=== PATIENT | female | born 1945 | race Caucasian/White ===

== ENCOUNTER 2024-12-26 11:33 | Observation (INO) ==
--- NOTE | 2024-12-26 11:53 | Emergency Department Note ---
Impression & Plan Chest pain, Abdominal pain, Shortness of breath, Elevated troponin, Hypoxia ED Provider Note NAME: OBI JOHNS AGE: 79 SEX: F : 1945 ARRIVES VIA: Ambulance INFORMANT: Patient ED PROVIDER(S): Miguelito Wallace DO CHIEF COMPLAINT: Chest pain, shortness of breath and vomiting HPI: Patient is a 79-year-old female who presents to the ER for chest pain and shortness of breath associated with vomiting. She notes her symptoms started this morning with shortness of breath and chest pain. Shortly after this she started vomiting. She threw up several times. She notes after vomiting she started having pain in her stomach. Chest pain has abated now. She was brought in by EMS and was given will be fentanyl. Denies any headache or change in vision. No dysuria, urgency or frequency. No other exacerbating or remitting factors. She does have a history of hypertension and smoker. ADDITIONAL HISTORY OBTAINED: Per HPI Chronic Medical/Social Conditions Affecting Care: Per HPI PAST MEDICAL HISTORY:See Below PAST SURGICAL HISTORY:See Below FAMILY HISTORY:See Below SOCIAL HISTORY:See Below HOME MEDICATIONS:See Below ALLERGIES:See Below VITALS:See Below PHYSICAL EXAMINATION: GENERAL: Sitting up in bed, alert, anxious, disheveled and tearful EYE EXAM: normal conjunctiva. OROPHARYNX: Moist mucous membranes NECK: supple, no nuchal rigidity, no adenopathy, non-tender LUNGS: Clear to auscultation. Normal chest wall mechanics HEART: no murmurs, S1 normal and S2 normal ABDOMEN: abdomen soft, non-tender, normo-active bowel sounds, no masses, no rebound or guarding. UPPER EXTREMITIES: upper extremities are grossly normal. LOWER EXTREMITIES: No pitting edema. NEURO EXAM: Normal sensorium, cranial nerves II-XII grossly intact, normal speech, no gross weakness of arms, no gross weakness of legs. MEDICAL DECISION MAKING: Patient is a 79-year-old female who presents ER for the above-stated complaint. IV was established and blood work was obtained. Labs show mild leukocytosis of 11.9 thousand. Hemoglobin at 16. BMP with LFTs bilirubin was fairly reassuring. Troponin was elevated but were trending from 28 to 35. Lipase was normal. UA was contaminated. No white cells to suggest infection. CT abdomen pelvis and CT of the chest showed no acute pathology. Patient was updated bedside. She was given aspirin, fluids and Zofran. She was feeling better. Upon arrival she had no chest pain. She was slightly hypoxic and placed on nasal cannula. Question if this was secondary to the prehospital fentanyl especially in light of a negative CTA but unclear at this point. Patient was discussed with the hospitalist and she was admitted for further workup. Consults/Care Managements Discussions: Per MDM Triage Nursing notes reviewed. Limited review of prior medical records performed Vital Signs: reviewed and remarkable for HTN Differential diagnosis: Cardiac ischemia, aortic dissection, pulmonary embolism, pneumothorax, pneumonia, pericarditis, myocarditis, esophageal rupture, GERD, cholecystitis, pancreatitis, musculoskeletal, as well as other pathologies. ER treatment provided: See below Diagnostics interpreted by me include EKG and cardiac monitoring as listed below: -Cardiac Monitoring: An order was placed for continuous cardiac monitoring. The monitor shows a rate of 60 with sinus rhythm. -ECG: Sinus bradycardia rate of 59 Normal axis No PVCs QTc 479 -Laboratory studies:Interpreted by me as stated above in MDM and shown below. Imaging studies: Xrays: As interpreted by me: Portable AP upright 1 view of the chest shows no focal infiltrate CTs show: CT angio as well as abdomen pelvis showed pulmonary nodules Procedures:none Critical Care: I have personally spent 32 minutes of critical care time in the direct management of this patient. This includes bedside care, interpretation of diagnostic studies, and testing, discussion with consultants, patient, and family members, and other required patient management activities. This 32 minutes is in excess of all separately billable procedures. Past Med/Surg History Problem List (Updated 12/26/24 @ 16:06 by Miguelito Wallace DO) Hypoxia (Acute) Elevated troponin (Acute) Shortness of breath (Acute) Abdominal pain (Acute) Chest pain (Acute) Social History Smoking Status: Current every day smoker Tobacco Type: Cigarettes Preferred Language: Yoruba Feels Safe at Home: Yes Allergies Allergies Allergy/AdvReac Type Severity Reaction Status Date / Time No Known Allergies Allergy Unverified 12/26/24 15:01 Home Meds Home Medications Medication Instructions Recorded Confirmed calcium carbonate 500 mg PO DAILY 12/26/24 12/26/24 cholecalciferol (vitamin D3) 25 25 mcg PO DAILY 12/26/24 12/26/24 mcg (1,000 unit) tablet (Vitamin D3) Results & Data (ED) Vital Signs Vital Signs - 24 hr 12/26/24 11:43 12/26/24 12:12 12/26/24 12:16 Temperature 36.4 C L Temperature Source Oral Pulse Rate 59 L 54 L Pulse Rate [Finger] Respiratory Rate 18 Blood Pressure 141/75 H Blood Pressure [Right Arm] Blood Pressure Mean 97 Blood Pressure Mean [Right Arm] Pulse Oximetry 98 88 L Oxygen Delivery Method Room Air Room Air Nasal Cannula Oxygen Flow Rate 0 Sepsis Recent Fever Within 48 Hours No Sepsis New/Unexplained Change in Mental Status No Sepsis Action Taken by Nursing No Action Required Oxygen Flow Rate - Titration 2 Pulse Oximetry Post Tiitration 96 12/26/24 13:44 12/26/24 15:30 Temperature Temperature Source Pulse Rate Pulse Rate [Finger] 69 62 Respiratory Rate 16 18 Blood Pressure Blood Pressure [Right Arm] 165/76 H 156/78 H Blood Pressure Mean Blood Pressure Mean [Right Arm] 105 104 Pulse Oximetry 94 95 Oxygen Delivery Method Nasal Cannula Nasal Cannula Oxygen Flow Rate 2 2 Sepsis Recent Fever Within 48 Hours Sepsis New/Unexplained Change in Mental Status Sepsis Action Taken by Nursing Oxygen Flow Rate - Titration Pulse Oximetry Post Tiitration Laboratory Data 12/26/24 11:13 12/26/24 11:13 Lab Results 12/26/24 12/26/24 12/26/24 Range/Units 11:13 13:55 14:17 WBC 11.96 H (4.8-10.8) K/ul RBC 5.51 H (4.20-5.40) M/uL Hgb 16.2 H (12.0-16.0) g/dl Hct 46.9 (37.0-47.0) % MCV 85.1 (80.0-100.0) fL MCH 29.4 (25.0-34.0) pg MCHC 34.5 (32.0-36.0) g/dL RDW Std Deviation 44.5 (36.4-46.3) fL RDW Coeff of Elizabeth 14.4 (11.5-14.5) % Plt Count 249 (130-400) K/uL MPV 11.8 (9.4-12.4) fL Immature Gran % (Auto) 0.2 % Neut % (Auto) 88.3 % Lymph % (Auto) 7.7 % Park % (Auto) 3.8 % Eos % (Auto) 0.0 % Baso % (Auto) 0.0 % Neut # (Auto) 10.56 H (1.40-6.50) K/uL Lymph # (Auto) 0.92 L (1.20-3.40) K/uL Park # (Auto) 0.46 (0.11-0.59) K/uL Eos # (Auto) 0.00 (0.00-0.50) K/uL Baso # (Auto) 0.00 (0.00-0.20) K/uL Immature Gran # (Auto) 0.02 (0.01-0.20) K/uL Sodium 143 (136-145) mmol/L Potassium 3.6 (3.5-5.1) mmol/L Chloride 103 (98-107) mmol/L Carbon Dioxide 27 (21-32) mmol/L Anion Gap 13 H (3-11) BUN 17 (6-23) mg/dl Creatinine 1.00 (0.6-1.2) mg/dl Est Cr Clr Drug Dosing 41.7 ml/min eGFR 57.66 BUN/Creatinine Ratio 17.0 (10-20) Glucose 161 H (70-99(Fasting)) mg/dl Calcium 10.2 (8.6-10.3) mg/dl Total Bilirubin 0.7 (0.2-1.0) mg/dl AST 18 (13-39) U/L ALT 13 (7-52) U/L Alkaline Phosphatase 82 (34-104) U/L Troponin I High Sens 21.0 H 35.1 H D (0-14) pg/ml Total Protein 8.1 (6.0-8.3) gm/dl Albumin 4.5 (3.4-5.0) gm/dl Globulin 3.6 (2.5-4.0) gm/dl Albumin/Globulin Ratio 1.3 (0.9-2) Lipase 14 (11-82) U/L Urine Color Yellow Urine Appearance Clear (Clear) Urine pH 8.5 H (4.5-7.5) Ur Specific [place] > 1.045 H (1.000-1.030) Urine Protein 1+ H (Negative) Urine Glucose (UA) Negative (Negative) Urine Ketones Trace H (Negative) Urine Blood 1+ H (Negative) Urine Nitrite Negative (Negative) Urine Bilirubin Negative (Negative) Urine Urobilinogen Negative (Negative) Ur Leukocyte Esterase 1+ H (Negative) Urine WBC (Auto) 0-5 (0-5) /hpf Urine RBC (Auto) 11-20 H (0-2) /hpf U Hyaline Cast (Auto) 0-2 (0-2) /lpf U Epithel Cells (Auto) 6-10 H (0-2) /hpf Urine Bacteria (Auto) 2+ H (None Seen) Urine Comment Administered Medications Discontinued Medications Aspirin (Aspirin Chew 324 Mg) 324 mg PO NOW STA Stop: 12/26/24 14:20 Last Admin: 12/26/24 14:21 Dose: 324 mg Documented By: KAMILLE Sodium Chloride (Nss) 500 mls @ 999 mls/hr IV .Q31M ONE Stop: 12/26/24 12:19 Last Infusion: 12/26/24 12:32 Dose: Infused Documented By: Admin: 12/26/24 11:58 Dose: 999 mls/hr Documented By: KAMILLE Ioversol (Optiray 320 125ml) 118 ml IV ONCE ONE Stop: 12/26/24 13:35 Last Admin: 12/26/24 13:34 Dose: 118 ml Documented By: KARLA Ondansetron HCl (Ondansetron Inj 2 Mg/Ml 2 Ml Vial) 4 mg IV NOW STA Stop: 12/26/24 11:49 Last Admin: 12/26/24 11:58 Dose: 4 mg Documented By: KAMILLE Imaging Data Radiologist's Impression: Abdomen/Pelvis CT 12/26/24 11:48 CT SCAN OF THE ABDOMEN AND PELVIS WITH IV CONTRAST CLINICAL HISTORY: Epigastric abdominal pain COMPARISON STUDY: No priors TECHNIQUE: Following the IV administration of 118 cc of Optiray 320, CT scan of the abdomen and pelvis is performed from the lung bases to the proximal femora. Images are reviewed in the axial, sagittal, and coronal planes. IV contrast was administered without complication. A dose lowering technique was utilized adhering to the principles of ALARA. FINDINGS: Lung bases: The heart is top normal in size and without pericardial effusion. Emphysematous change is suspected. There is bibasilar scarring/atelectasis. No airspace consolidation or pleural effusion is identified. Liver: The contrast-enhanced liver is normal in size, contour, and attenuation. Fatty infiltration is seen adjacent to the falciform ligament. There is no intrahepatic biliary ductal dilatation. The hepatic veins and portal veins are patent. Gallbladder: Unremarkable. Spleen: Normal in size and attenuation. Pancreas: Unremarkable. Adrenal glands: Unremarkable. Kidneys: The contrast enhanced kidneys are normal in size and without hydronephrosis. The kidneys enhance symmetrically. Abdominal vasculature: There is moderate to advanced atherosclerotic calcification and mild ectasia of the abdominal aorta. Bowel: There is moderate sigmoid diverticulosis without CT evidence of acute diverticulitis. No bowel obstruction is seen. The appendix is not visualized. Peritoneum: There is no intraperitoneal free air or abdominal ascites. Lymphadenopathy: None. Pelvic viscera: The bladder, uterus, and adnexa are normal as visualized. Skeletal structures: The skeletal structures are osteopenic. There is mild lumbosacral spondylosis. No lytic or blastic lesions are seen. IMPRESSION: 1. No acute infectious or inflammatory findings are identified in the abdomen or pelvis. 2. Sigmoid diverticulosis without CT evidence of acute diverticulitis. 3. Additional findings as above. ACT 112: Negative or not required by law. Electronically signed by: Ravi Santo M.D. 12/26/2024 1:51 PM Chest X-Ray 12/26/24 11:48 SINGLE VIEW CHEST CLINICAL HISTORY: Chest pain FINDINGS: An AP, portable, upright chest radiograph is obtained. No prior studies are available for comparison at the time of dictation. The examination is degraded by portable technique and apical lordotic positioning. The cardiomediastinal silhouette is unremarkable noting atherosclerotic calcification of the thoracic aorta. Emphysema is suspected. Nonspecific interstitial thickening is likely chronic. There is bibasilar scarring/atelectasis. No airspace consolidation or large pleural effusion is identified. Question a nodular opacity in the right upper lung. No pneumothorax is seen. The skeletal structures are osteopenic. The bony thorax is grossly intact. IMPRESSION: 1. No acute cardiopulmonary abnormality is identified. 2. Suspect emphysema. 3. Question a nodular opacity in the right upper lung. This may be artifactual. A nonemergent chest CT is recommended in follow-up to exclude the possibility of underlying pulmonary nodule. ACT 112: Positive. There are findings on this exam that require communication between the performing entity and the patient following Patient Test Result Information Act ([place] Act 112) guidelines. Electronically signed by: Ravi Santo M.D. 12/26/2024 12:03 PM Chest CTA 12/26/24 12:41 CT angio chest PE protocol CT DOSE: 1078.4 mGy.cm HISTORY: 79 years-old Female with PE hypoxic and cp. Acute shortness of breath with chest pain TECHNIQUE: Multiple CTA images of the chest were obtained after the intravenous administration of 118 ml Optiray. Coronal and sagittal MIPS were obtained from the axial data set and were submitted for review. All measurements were obtained according to NASCET criteria. A dose lowering technique was utilized adhering to the principles of ALARA. COMPARISON: CT abdomen and pelvis of same day FINDINGS: CTA: Heart is normal in size. Suboptimal evaluation of the left heart structures secondary to contrast bolus timing. No thoracic aortic aneurysm. Mild coronary artery calcifications. No pulmonary emboli are seen. CT CHEST: No dominant thyroid nodule is seen. No pathologically enlarged lymph nodes. No pneumothorax, pleural effusion or overt pulmonary edema. Mild to moderate pulmonary emphysema. Mild subsegmental bibasilar densities suggest atelectasis/scarring. There are no suspicious pulmonary nodules or masses identified. There are 2 ill-defined groundglass nodular foci within the right lung apex measuring up to 8 mm. The central airways are patent. No acute upper abdominal abnormality. The soft tissues are within normal limits. No acute fracture. IMPRESSION: 1. Unremarkable CTA of the chest. No pulmonary emboli identified. 2. Mild right basilar predominant atelectasis/scarring. 3. Pulmonary emphysema. 4. There are two groundglass nodular foci within the right lung apex measuring up to 8 mm. Follow-up guidelines below. Please refer to below summary of Fleischner criteria recommendations for follow- up of incidental CT nodules (Choco Delaney, Guidelines for management of small pulmonary nodules detected on CT scans: A statement from the Fleischner Society, Radiology 237: [id number].) Note: newly detected indeterminate nodule in persons 35 years of age or older. * Low risk patients: minimal or absent history of smoking and/or other known risk factors * high risk patients: history of smoking or of other known risk factors (e.g. first degree relative with lung cancer, or exposure to asbestos, radon, uranium) * if a nodule up to 8 mm is partly solid or is ground glass further follow-up is required after 24 months to exclude possible slow growing adenocarcinoma (ROD) SUBSOLID NODULES Multiple subsolid nodules * nodule size <6 mm - follow-up CT at 3-6 months, consider further follow-up at 2 and 4 years if stable * nodule size >=6 mm - follow-up CT at 3-6 months, subsequent management based on the most suspicious nodule(s) The above report was generated using voice recognition software. It may contain grammatical, syntax or spelling errors. ACT 112: Negative or not required by law. The above report was generated using voice recognition software. It may contain grammatical, syntax or spelling errors. Electronically signed by: Mono Pinzon M.D. 12/26/2024 2:14 PM Discharge Plan Visit Data Chief Complaint: Chest Pain ED Provider: Miguelito Wallace Discharge Problem: Chest pain, Abdominal pain, Shortness of breath, Elevated troponin, Hypoxia Condition: Fair Forms Stand Alone Forms: [employer] [facility] [employer] Prescriptions Prescriptions: No Action calcium carbonate [Calcium 500] 500 mg calcium (1,250 mg) Tablet 500 mg PO DAILY cholecalciferol (vitamin D3) [Vitamin D3] 25 mcg (1,000 unit) Tablet 25 mcg PO DAILY Referrals Referrals: PCP,NO [Primary Care Provider] - Discharge Problem: Chest pain Qualifiers: Chest pain type: unspecified Qualified Code(s): R07.9 - Chest pain, unspecified Abdominal pain Qualifiers: Abdominal location: unspecified location Qualified Code(s): R10.9 - Unspecified abdominal pain
[2024-12-26] MEDS: ONDANSETRON INJ 2 MG/ML 2 ML VIAL IV STA (11:58)
[2024-12-26] MEDS: SODIUM CHLORIDE 0.9% 500 ML IV ONE (11:58)
--- NOTE | 2024-12-26 12:04 | XRay Report ---
SINGLE VIEW CHEST CLINICAL HISTORY: Chest pain FINDINGS: An AP, portable, upright chest radiograph is obtained. No prior studies are available for c omparison at the time of dictation. The examination is degraded by portable technique and apical lord otic positioning. The cardiomediastinal silhouette is unremarkable noting atherosclerotic calcificat ion of the thoracic aorta. Emphysema is suspected. 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 There is bibasilar scarring/atelectasis. No airspace consolidation or large pleural effusion is identified. Question a nodular opacity in the right upper lung. No pneumothorax is seen. The skeletal structures are osteopenic. The bony thorax is grossly intact. IMPRESSION: 1. No acute cardiopulmonary abnormality is identified. 2. Suspect emphysema. 3. Question a nodular opacity in the right upper lung. This may be artifactual. A nonemergent chest C T is recommended in follow-up to exclude the possibility of underlying pulmonary nodule. ACT 112: Positive. There are findings on this exam that require communication between the performing entity and the patient following Patient Test Result Information Act ([place] Act 112) guidelines. Electronically signed by: Ravi Santo M.D. 12/26/2024 12:03 PM
[2024-12-26 12:06] LABS: Hematocrit (blood only) 46.9 % (37.0-47.0); Hemoglobin 16.2 g/dl (12.0-16.0); Immature Granulocytes # (auto) 0.02 K/uL (0.01-0.20); Immature Granulocytes % (auto) 0.2 %; Mean Corpuscular Hemoglobin 29.4 pg (25.0-34.0); Mean Corpuscular Volume 85.1 fL (80.0-100.0); Platelet Count 249 K/uL (130-400); RDW Standard Deviation 44.5 fL (36.4-46.3); Red Blood Count 5.51 M/uL (4.20-5.40); White Blood Count 11.96 K/ul (4.8-10.8)
[2024-12-26 12:55] LABS: Alanine Aminotransferase 13.0 U/L (7-52); Albumin Globulin Ratio 1.3 (0.9-2); Alkaline Phosphatase 82.0 U/L (34-104); Anion Gap 13.0 (3-11); Bilirubin,Total 0.7 mg/dl (0.2-1.0); Blood Urea Nitrogen 17.0 mg/dl (6-23); Calcium 10.2 mg/dl (8.6-10.3); Carbon Dioxide 27.0 mmol/L (21-32); Chloride 103.0 mmol/L (98-107); Creatinine Clr Calc Pharmacy 41.7 ml/min; Globulin 3.6 gm/dl (2.5-4.0); Glucose 161.0 mg/dl (70-99(Fasting)); Lipase 14.0 U/L (11-82); Potassium 3.6 mmol/L (3.5-5.1); Sodium 143.0 mmol/L (136-145); Total Protein 8.1 gm/dl (6.0-8.3)
[2024-12-26] MEDS: OPTIRAY 320 125ml IV ONE (13:34)
--- NOTE | 2024-12-26 13:53 | CT Scan Report ---
CT SCAN OF THE ABDOMEN AND PELVIS WITH IV CONTRAST CLINICAL HISTORY: Epigastric abdominal pain COMPARISON STUDY: No priors TECHNIQUE: Following the IV administration of 118 cc of Optiray 320, CT scan of the abdomen and pelv is is performed from the lung bases to the proximal femora. Images are reviewed in the axial, sagitta l, and coronal planes. IV contrast was administered without complication. A dose lowering technique w as utilized adhering to the principles of ALARA. FINDINGS: Lung bases: The heart is top normal in size and without pericardial effusion. Emphysematous change is suspected. There is bibasilar scarring/atelectasis. No airspace consolidation or pleural effusion is identified. Liver: The contrast-enhanced liver is normal in size, contour, and attenuation. Fatty infiltration is seen adjacent to the falciform ligament. There is no intrahepatic biliary ductal dilatation. The hep atic veins and portal veins are patent. Gallbladder: Unremarkable. Spleen: Normal in size and attenuation. Pancreas: Unremarkable. Adrenal glands: Unremarkable. Kidneys: The contrast enhanced kidneys are normal in size and without hydronephrosis. The kidneys enh ance symmetrically. Abdominal vasculature: There is moderate to advanced atherosclerotic calcification and mild ectasia o f the abdominal aorta. Bowel: There is moderate sigmoid diverticulosis without CT evidence of acute diverticulitis. No bowel obstruction is seen. The appendix is not visualized. Peritoneum: There is no intraperitoneal free air or abdominal ascites. Lymphadenopathy: None. Pelvic viscera: The bladder, uterus, and adnexa are normal as visualized. Skeletal structures: The skeletal structures are osteopenic. There is mild lumbosacral spondylosis. N o lytic or blastic lesions are seen. IMPRESSION: 1. No acute infectious or inflammatory findings are identified in the abdomen or pelvis. 2. Sigmoid diverticulosis without CT evidence of acute diverticulitis. 3. Additional findings as above. ACT 112: Negative or not required by law. Electronically signed by: Ravi Santo M.D. 12/26/2024 1:51 PM
[2024-12-26 14:16] LABS: Appearance Urine Clear (Clear); Bacteria Urine Automated 2+ (None Seen); Cast Urine Automated 0-2 /lpf (0-2); Glucose Urine UA Negative (Negative); WBC Urine Automated 0-5 /hpf (0-5)
--- NOTE | 2024-12-26 14:16 | CT Scan Report ---
CT angio chest PE protocol CT DOSE: 1078.4 mGy.cm HISTORY: 79 years-old Female with PE hypoxic and cp. Acute shortness of breath with chest pain TECHNIQUE: Multiple CTA images of the chest were obtained after the intravenous administration of 118 ml Optiray. Coronal and sagittal MIPS were obtained from the axial data set and were submitted for review. All measurements were obtained according to NASCET criteria. A dose lowering technique was u tilized adhering to the principles of ALARA. COMPARISON: CT abdomen and pelvis of same day FINDINGS: CTA: Heart is normal in size. Suboptimal evaluation of the left heart structures secondary to contrast cheryl us timing. No thoracic aortic aneurysm. Mild coronary artery calcifications. No pulmonary emboli are seen. CT CHEST: No dominant thyroid nodule is seen. No pathologically enlarged lymph nodes. No pneumothorax, pleural effusion or overt pulmonary edema. Mild to moderate pulmonary emphysema. Mild subsegmental bibasilar densities suggest atelectasis/scarring. There are no suspicious pulmonary nodules or masses identifie d. There are 2 ill-defined groundglass nodular foci within the right lung apex measuring up to 8 mm. The central airways are patent. No acute upper abdominal abnormality. The soft tissues are within nor mal limits. No acute fracture. IMPRESSION: 1. Unremarkable CTA of the chest. No pulmonary emboli identified. 2. Mild right basilar predominant atelectasis/scarring. 3. Pulmonary emphysema. 4. There are two groundglass nodular foci within the right lung apex measuring up to 8 mm. Follow-up guidelines below. Please refer to below summary of Fleischner criteria recommendations for follow-up of incidental CT n odules (Choco Delaney, Guidelines for management of small pulmonary nodules detected on CT scans: A sta tement from the Fleischner Society, Radiology 237: [phone].) Note: newly detected indeterminate nodule in persons 35 years of age or older. * Low risk patients: minimal or absent history of smoking and/or other known risk factors * high risk patients: history of smoking or of other known risk factors (e.g. first degree relative with lung cancer, or exposure to asbestos, radon, uranium) * if a nodule up to 8 mm is partly solid or is ground glass further follow-up is required after 24 m onths to exclude possible slow growing adenocarcinoma (ROD) SUBSOLID NODULES Multiple subsolid nodules * nodule size <6 mm - follow-up CT at 3-6 months, consider further follow-up at 2 and 4 years if sta ble * nodule size >=6 mm - follow-up CT at 3-6 months, subsequent management based on the most suspiciou s nodule(s) The above report was generated using voice recognition software. It may contain grammatical, syntax o r spelling errors. ACT 112: Negative or not required by law. The above report was generated using voice recognition software. It may contain grammatical, syntax o r spelling errors. Electronically signed by: Mono Pinzon M.D. 12/26/2024 2:14 PM
[2024-12-26] MEDS: ASPIRIN CHEW 324 MG PO STA (14:21)
[2024-12-26 16:00] LABS: INR 1.0 (0.9-1.1); Partial Thromboplastin Time 27 Seconds (21-31); Prothrombin Time 10.4 Seconds (9.0-12.0)
[2024-12-26] MEDS: PANTOprazole 40 MG/10 ML SYR IV ONE (16:13)
--- NOTE | 2024-12-26 16:16 | Electrocardiogram Report ---
Test Reason : Blood Pressure : */* mmHG Vent. Rate : 59 BPM Atrial Rate : 59 BPM P-R Int : 168 ms QRS Dur : 80 ms QT Int : 484 ms P-R-T Axes : 83 44 73 degrees QTcB Int : 479 ms Sinus bradycardia with sinus arrhythmia Otherwise normal ECG No previous ECGs available Confirmed by Gregory Woodard ([id number]) on 12/26/2024 4:16:38 PM Referred By: Confirmed By: Gregory Woodard
[2024-12-26] MEDS: SUCRALFATE 1 GM/10 ML UDC PO SCH (17:51)
--- NOTE | 2024-12-26 22:23 | History & Physical Report ---
Date of Service December 26, 2024 Assessment & Plan (1) Abdominal pain: Plan: acute chest pain and abdominal pain in a 79 yo female with no significant past medical history. Doubt ACS, troponin only mildly elevated. Ruled out P/E and dissection with CTA of chest and abd/pevis. WBC only mildly elevbated. No recent use of NSAIDs Concern for Gastroenteritis vs peptic ulcer disease. will place on pantoprazole sucralfate. Will also consider GI consult. will trend tropoinin, will place on tele. Possible discharge in AM if symptoms resolved vs endoscopy if symptoms worsen. Admission and Anticipated Discharge Date Admission Date: December 26, 2024 History of Present Illness Chief Complaint: abdominal pain Primary Care Provider: NO PCP 79 yo female woke up at 4 am with need to defecate. She went to the bathroom and had a liquid BM, which is not her norm. She noted there was no blood. Patient went back to bed but was unable to fall back to sleep. She stated that her pain returned and radiated to her back. She reports the raidation begins in her mid lumbar spine but then goes up to her chest and mid thoracic spine. = This was accompanied by need to go to defecate, however she only passed gas. She then had chills, followed by nausea and miultiple episodes of vomiting. No recent use of NSAIDs. Patient has not followed with a PCP in past 2 years. Allergies Allergy/AdvReac Type Severity Reaction Status Date / Time No Known Allergies Allergy Unverified 12/26/24 15:01 Home Medications Medication Instructions Recorded Confirmed Type calcium carbonate 500 mg PO DAILY 12/26/24 12/26/24 History cholecalciferol (vitamin D3) 25 25 mcg PO DAILY 12/26/24 12/26/24 History mcg (1,000 unit) tablet (Vitamin D3) Past Med/Surg History Problem List Hypoxia (Acute) Elevated troponin (Acute) Shortness of breath (Acute) Abdominal pain (Acute) Chest pain (Acute) Social History Smoking Status: Never smoker Tobacco Type: Cigarettes Second Hand Exposure: No; Do You Dip or Chew Tobacco: No; Tobacco Cessation Education Requested by Patient: No Hx Alcohol Use: No Hx Substance Use: No Preferred Language: Cameroonian Communication Ability: Effective Beliefs That Will Affect Care: Buddhism Buddhism Beliefs: Shinto Current Living Situation: Alone Current Living Situation Comment: With cat- Other Information That Helps Us Care for You: No Feels Safe at Home: Yes Safety Concerns: Feels Safe At This Time Assistive Devices: None Review of Systems Constitutional: + chills; no fever and no body aches Eyes: no blind spots Ear, Nose, Mouth, Throat: no ear pain Respiratory: no cough and no dyspnea Cardiovascular: + chest pain Gastrointestinal: + abdominal pain Genitourinary: no dysuria and no urinary hesitancy Musculoskeletal: + back pain Integumentary: no lesions Neurologic: no gait abnormality and no localized weakness Psychiatric: no behavioral changes and no anhedonia Endocrine: no fatigue Hematologic / Lymphatic: no easy bleeding Allergy / Immunological: no GI upset with certain foods Physical Exam Constitutional: WD/WN, vitals as above Eyes: PERRL, conjunctivae normal, anicteric sclerae ENMT: external ear and nose normal, oropharynx normal Neck: trachea midline, no thyromegaly Respiratory: normal respiratory effort, lungs clear to auscultation Cardiovascular: RRR, no murmur, no edema Gastrointestinal (Abdomen): Inspection/Auscultation: abdomen normal to inspection and normal bowel sounds Percussion/Palpation: abdomen soft; abdomen nontender Musculoskeletal: no cyanosis or clubbing, extremities motor strength 5/5 Skin: no rashes, warm and dry Neurologic: PERRL, EOMI, accommodation nl, no face palsy, no dysarthria Psychiatric: A+Ox3, euthymic affect Lymphatic: no cervical or axillary lymphadenopathy Results & Data Results & Data Vital Signs (Past 12 Hours) Vital Signs Temp Pulse Pulse Resp BP BP Pulse Ox 12/26/24 20:26 36.9 C 70 18 154/85 H 95 12/26/24 16:54 65 12/26/24 15:30 62 18 156/78 H 95 12/26/24 13:44 69 16 165/76 H 94 12/26/24 12:16 54 L 12/26/24 12:12 88 L 12/26/24 11:43 36.4 C L 59 L 18 141/75 H 98 O2 Del Method O2 Flow Rate 12/26/24 20:26 Room Air 12/26/24 16:54 12/26/24 15:30 Nasal Cannula 2 12/26/24 13:44 Nasal Cannula 2 12/26/24 12:16 12/26/24 12:12 Room Air, Nasal Cannula 0 12/26/24 11:43 Room Air PG Care Time/CCT Total # of Minutes Spent Total Time Spent with Patient: Total time spent is greater than 50% in coordination of care (as documented) at patient's floor/unit and/or counseling patient: Coding Level of Care Code 25491 INT INP/OBS CARE 3/75MIN Diagnoses Abdominal pain R10.9 Abdominal location: unspecified location (1) Abdominal pain Abdominal location: unspecified location Qualified Code(s): R10.9 - Unspecified abdominal pain
[2024-12-27] MEDS ORDERED: ACETAMINOPHEN 325 MG TAB PO PRN (03:28)
[2024-12-27] MEDS: ACETAMINOPHEN 500 MG TAB PO PRN (03:56)
[2024-12-27 05:49] LABS: Hematocrit (blood only) 43.0 % (37.0-47.0); Hemoglobin 14.2 g/dl (12.0-16.0); Immature Granulocytes # (auto) 0.03 K/uL (0.01-0.20); Immature Granulocytes % (auto) 0.3 %; Mean Corpuscular Hemoglobin 28.3 pg (25.0-34.0); Mean Corpuscular Volume 85.8 fL (80.0-100.0); Platelet Count 223 K/uL (130-400); RDW Standard Deviation 46.8 fL (36.4-46.3); Red Blood Count 5.01 M/uL (4.20-5.40); White Blood Count 10.72 K/ul (4.8-10.8)
[2024-12-27 06:05] LABS: Alanine Aminotransferase 11.0 U/L (7-52); Alkaline Phosphatase 68.0 U/L (34-104); Blood Urea Nitrogen 13.0 mg/dl (6-23); Calcium 9.3 mg/dl (8.6-10.3); Carbon Dioxide 28.0 mmol/L (21-32); Chloride 104.0 mmol/L (98-107); Cholesterol 171.0 mg/dl (0-200); Creatinine Clr Calc Pharmacy 39.8 ml/min; Glucose 114.0 mg/dl (70-99(Fasting)); HDL Cholesterol 58.0 mg/dl; Lipase 14.0 U/L (11-82); Potassium 3.3 mmol/L (3.5-5.1)
[2024-12-27 06:14] LABS: Albumin Globulin Ratio 1.3 (0.9-2); Anion Gap 8.0 (3-11); Bilirubin,Total 0.8 mg/dl (0.2-1.0); Globulin 3.0 gm/dl (2.5-4.0); Sodium 140.0 mmol/L (136-145); Total Protein 6.9 gm/dl (6.0-8.3); Triglycerides 115.0 mg/dl (0-150)
[2024-12-27] MEDS: PANTOprazole 40 MG/10 ML SYR IV SCH (07:39)
[2024-12-27] MEDS: ASPIRIN 81 MG ECTAB PO SCH (07:39)
[2024-12-27] MEDS: ONDANSETRON INJ 2 MG/ML 2 ML VIAL IV STA (08:49)
--- NOTE | 2024-12-27 09:18 | Gastrointestinal Consultation ---
Date of Consultation December 27, 2024 Assessment & Plan (1) Abdominal pain: 79 year old female with history of HTN, osteoporosis and others below admitted through the ED w/ abdominal pain, nausea/vomiting Negative CTAP, negative chest CTA, lipase and LFTs non-elevated. She does note a history of solid's dysphagia but denies any impactions or sensation of foreign body sensation of esophagus at present time. Will plan for diagnostic EGD tomorrow to rule out esophagitis, gastritis, peptic ulcer disease vs other Clear liquids today NPO after midnight EGD 12/28/24 IV PPI BID May continue liquid Carafate Scheduled anti-emetics If she develops diarrhea, recommend stool PCR to rule out infectious etiology I spent a total of 60 minutes on the date of service in review of patient's record, and previously obtained information in person and appropriate medical visit, discussion and education of plan, with patient and/or caregiver, placing orders for tests/referral/procedures as medically necessary and documentation of pertinent clinical information in patient's medical records for their visit to day. Supervising Physician Co-Signing Physician Notes I saw and examined this patient with our nurse practitioner and agree with her assessment and plan. Patient with new onset epigastric substernal pain. Cardiopulmonary etiologies have been excluded. Abdominal imaging is unrevealing. To consider upper GI pathology such as pill induced esophagitis, infectious esophagitis possibly peptic ulcer disease. Will proceed with endoscopy in AM. History of Present Illness Reason for Consultation: epigastric abd. pain radiating to back Requesting Physician: Arash Brandon Attending Physician: Arash Brandon History of Present Illness 79 year old female with history of HTN, osteoporosis and others below admitted through the ED w/ abdominal pain, nausea/vomiting - GI was asked to evaluate. She notes her symptoms started about 36 hours ago. Developed severe abd discomfort - located in the epigastric region. She noted fullness through her entire abdomen explained as pressure. She later developed dry heaving followed by episodes of emesis. Per patient this was clear. Does not report seeing any black/bloody emesis. She notes she has had chronic intermittent solids dysphagia for about two years. No issue with liquids. No report of GERD. Denies change in bowel habits. No report of diarrhea/constipation. She cannot recall how may days ago her last BM was. Denies weight loss. No fever, chills, CP, SOB. NSAIDs: none ETOH: none Tobacco: none H&H 14.2/43 INR 1 TB 0.8 AST 19 ALT 11 ALKP 68 Lipase 14 Troponin 21 --> 35 --> 34 --> 28 Chest CTA 2024: Unremarkable CTA of the chest. No pulmonary emboli identified. Mild right basilar predominant atelectasis/scarring. Pulmonary emphysema.There are two groundglass nodular foci within the right lung apex measuring up to 8 mm. Follow-up guidelines below. Chest XR 2024: No acute cardiopulmonary abnormality is identified. Suspect emphysema. CTAP 2024: No acute infectious or inflammatory findings are identified in the abdomen or pelvis. Sigmoid diverticulosis without CT evidence of acute div erticulitis. EGD: none Colonoscopy: none Family history of GI malignancy: denies Allergies Allergy/AdvReac Type Severity Reaction Status Date / Time No Known Allergies Allergy Unverified 12/26/24 15:01 Home Medications Medication Instructions Recorded Confirmed Type calcium carbonate 500 mg PO DAILY 12/26/24 12/26/24 History cholecalciferol (vitamin D3) 25 25 mcg PO DAILY 12/26/24 12/26/24 History mcg (1,000 unit) tablet (Vitamin D3) Patient History Social History Smoking Status: Never smoker Tobacco Type: Cigarettes Second Hand Exposure: No; Do You Dip or Chew Tobacco: No; Tobacco Cessation Education Requested by Patient: No Hx Alcohol Use: No Hx Substance Use: No Preferred Language: Cape Verdean Communication Ability: Effective Beliefs That Will Affect Care: Religion Religion Beliefs: Pentecostal Current Living Situation: Alone Current Living Situation Comment: With cat- Other Information That Helps Us Care for You: No Feels Safe at Home: Yes Safety Concerns: Feels Safe At This Time Assistive Devices: None Review of Systems Review of Systems: All other findings negative except as noted in HPI. Physical Exam Constitutional: WD/WN, vitals as above Respiratory: normal respiratory effort Cardiovascular: Rate/Rhythm: regular rate and regular rhythm Gastrointestinal (Abdomen): Inspection/Auscultation: abdomen normal to inspection Skin: no rashes, warm and dry Results & Data Vital Signs (Past 12 Hours) Vital Signs Temp Pulse Pulse Resp BP Pulse Ox O2 Del Method 12/27/24 08:09 97.7 F 54 L 20 225/89 H 97 Room Air 12/27/24 03:05 97.9 F 88 20 186/78 H 94 Room Air 12/26/24 22:44 98.8 F 83 18 130/84 94 Room Air 12/26/24 21:49 61 Laboratory Results 12/27/24 12/26/24 12/26/24 Range/Units 05:34 23:18 14:17 WBC 10.72 (4.8-10.8) K/ul RBC 5.01 (4.20-5.40) M/uL Hgb 14.2 (12.0-16.0) g/dl Hct 43.0 (37.0-47.0) % MCV 85.8 (80.0-100.0) fL MCH 28.3 (25.0-34.0) pg MCHC 33.0 (32.0-36.0) g/dL RDW Std Deviation 46.8 H (36.4-46.3) fL RDW Coeff of [place] 14.9 H (11.5-14.5) % Plt Count 223 (130-400) K/uL MPV 11.4 (9.4-12.4) fL Immature Gran % (Auto) 0.3 % Neut % (Auto) 63.3 % Lymph % (Auto) 23.5 % [place] % (Auto) 12.1 % Eos % (Auto) 0.5 % Baso % (Auto) 0.3 % Neut # (Auto) 6.79 H (1.40-6.50) K/uL Lymph # (Auto) 2.52 (1.20-3.40) K/uL [place] # (Auto) 1.30 H (0.11-0.59) K/uL Eos # (Auto) 0.05 (0.00-0.50) K/uL Baso # (Auto) 0.03 (0.00-0.20) K/uL Immature Gran # (Auto) 0.03 (0.01-0.20) K/uL PT (9.0-12.0) Seconds INR (0.9-1.1) APTT (21-31) Seconds PTT Ratio Sodium 140 (136-145) mmol/L Potassium 3.3 L (3.5-5.1) mmol/L Chloride 104 (98-107) mmol/L Carbon Dioxide 28 (21-32) mmol/L Anion Gap 8 (3-11) BUN 13 (6-23) mg/dl Creatinine 1.07 (0.6-1.2) mg/dl Est Cr Clr Drug Dosing 39.8 ml/min eGFR 53.17 BUN/Creatinine Ratio 12.1 (10-20) Glucose 114 H (70-99(Fasting)) mg/dl Calcium 9.3 (8.6-10.3) mg/dl Total Bilirubin 0.8 (0.2-1.0) mg/dl Direct Bilirubin 0.1 (0-0.2) mg/dl AST 19 (13-39) U/L ALT 11 (7-52) U/L Alkaline Phosphatase 68 (34-104) U/L Troponin I High Sens 28.3 H 34.4 H 35.1 H D (0-14) pg/ml C-Reactive Protein 0.67 H (0-0.5) mg/dl Total Protein 6.9 (6.0-8.3) gm/dl Albumin 3.9 (3.4-5.0) gm/dl Globulin 3.0 (2.5-4.0) gm/dl Albumin/Globulin Ratio 1.3 (0.9-2) Triglycerides 115 (0-150) mg/dl Cholesterol 171 (0-200) mg/dl LDL Cholesterol, Calc 90 mg/dl VLDL Cholesterol, Calc 23 (0-30) mg/dl HDL Cholesterol 58 mg/dl Cholesterol/HDL Ratio 2.9 (0-5) Lipase 14 (11-82) U/L Procalcitonin (0-0.5) ng/ml Urine Color Urine Appearance (Clear) Urine pH (4.5-7.5) Ur Specific [place] (1.000-1.030) Urine Protein (Negative) Urine Glucose (UA) (Negative) Urine Ketones (Negative) Urine Blood (Negative) Urine Nitrite (Negative) Urine Bilirubin (Negative) Urine Urobilinogen (Negative) Ur Leukocyte Esterase (Negative) Urine WBC (Auto) (0-5) /hpf Urine RBC (Auto) (0-2) /hpf U Hyaline Cast (Auto) (0-2) /lpf U Epithel Cells (Auto) (0-2) /hpf Urine Bacteria (Auto) (None Seen) Urine Comment 12/26/24 12/26/24 Range/Units 13:55 11:13 WBC 11.96 H (4.8-10.8) K/ul RBC 5.51 H (4.20-5.40) M/uL Hgb 16.2 H (12.0-16.0) g/dl Hct 46.9 (37.0-47.0) % MCV 85.1 (80.0-100.0) fL MCH 29.4 (25.0-34.0) pg MCHC 34.5 (32.0-36.0) g/dL RDW Std Deviation 44.5 (36.4-46.3) fL RDW Coeff of [place] 14.4 (11.5-14.5) % Plt Count 249 (130-400) K/uL MPV 11.8 (9.4-12.4) fL Immature Gran % (Auto) 0.2 % Neut % (Auto) 88.3 % Lymph % (Auto) 7.7 % [place] % (Auto) 3.8 % Eos % (Auto) 0.0 % Baso % (Auto) 0.0 % Neut # (Auto) 10.56 H (1.40-6.50) K/uL Lymph # (Auto) 0.92 L (1.20-3.40) K/uL [place] # (Auto) 0.46 (0.11-0.59) K/uL Eos # (Auto) 0.00 (0.00-0.50) K/uL Baso # (Auto) 0.00 (0.00-0.20) K/uL Immature Gran # (Auto) 0.02 (0.01-0.20) K/uL PT 10.4 (9.0-12.0) Seconds INR 1.0 (0.9-1.1) APTT 27 (21-31) Seconds PTT Ratio 1.0 Sodium 143 (136-145) mmol/L Potassium 3.6 (3.5-5.1) mmol/L Chloride 103 (98-107) mmol/L Carbon Dioxide 27 (21-32) mmol/L Anion Gap 13 H (3-11) BUN 17 (6-23) mg/dl Creatinine 1.00 (0.6-1.2) mg/dl Est Cr Clr Drug Dosing 41.7 ml/min eGFR 57.66 BUN/Creatinine Ratio 17.0 (10-20) Glucose 161 H (70-99(Fasting)) mg/dl Calcium 10.2 (8.6-10.3) mg/dl Total Bilirubin 0.7 (0.2-1.0) mg/dl Direct Bilirubin (0-0.2) mg/dl AST 18 (13-39) U/L ALT 13 (7-52) U/L Alkaline Phosphatase 82 (34-104) U/L Troponin I High Sens 21.0 H (0-14) pg/ml C-Reactive Protein (0-0.5) mg/dl Total Protein 8.1 (6.0-8.3) gm/dl Albumin 4.5 (3.4-5.0) gm/dl Globulin 3.6 (2.5-4.0) gm/dl Albumin/Globulin Ratio 1.3 (0.9-2) Triglycerides (0-150) mg/dl Cholesterol (0-200) mg/dl LDL Cholesterol, Calc mg/dl VLDL Cholesterol, Calc (0-30) mg/dl HDL Cholesterol mg/dl Cholesterol/HDL Ratio (0-5) Lipase 14 (11-82) U/L Procalcitonin < 0.02 (0-0.5) ng/ml Urine Color Yellow Urine Appearance Clear (Clear) Urine pH 8.5 H (4.5-7.5) Ur Specific [place] > 1.045 H (1.000-1.030) Urine Protein 1+ H (Negative) Urine Glucose (UA) Negative (Negative) Urine Ketones Trace H (Negative) Urine Blood 1+ H (Negative) Urine Nitrite Negative (Negative) Urine Bilirubin Negative (Negative) Urine Urobilinogen Negative (Negative) Ur Leukocyte Esterase 1+ H (Negative) Urine WBC (Auto) 0-5 (0-5) /hpf Urine RBC (Auto) 11-20 H (0-2) /hpf U Hyaline Cast (Auto) 0-2 (0-2) /lpf U Epithel Cells (Auto) 6-10 H (0-2) /hpf Urine Bacteria (Auto) 2+ H (None Seen) Urine Comment PG Care Time/CCT Total # of Minutes Spent Total Time Spent with Patient: Total time spent is greater than 50% in coordination of care (as documented) at patient's floor/unit and/or counseling patient: Coding Level of Care Code 47683 INT INP/OBS CARE 2/55MIN Diagnoses Abdominal pain R10.9 Abdominal location: unspecified location (1) Abdominal pain Abdominal location: unspecified location Qualified Code(s): R10.9 - Unspecified abdominal pain
[2024-12-27] MEDS: ACETAMINOPHEN 1,000 MG/100 ML VIAL IV STA (09:59)
[2024-12-27] MEDS: ENOXAPARIN INJ 40 MG/0.4 ML SYR SQ SCH (10:07)
[2024-12-27] MEDS: FAMOTIDINE 20MG IV PUSH 20 MG/5 ML SYR IV STA (10:07)
--- NOTE | 2024-12-27 10:35 | XCELERA ---
[id number]
[2024-12-27] MEDS: PROCHLORPERAZINE 5 MG in SYRINGE 4 ML IV PRN (11:39)
--- NOTE | 2024-12-27 12:08 | XRay Report ---
KUB CLINICAL HISTORY: Generalized abdominal pain. FINDINGS: 2 AP supine abdominal radiographs are correlated with abdominal CT dated 12/26/2024. There is a nonobstructed abdominal bowel gas pattern. Moderate fecal retention is seen throughout the colon. No evidence of intraperitoneal free air is identified on these supine images. There are no abnormal a bdominal calcifications. Phleboliths are seen in the pelvis. The skeletal structures are osteopenic a nd appear intact. IMPRESSION: No acute abnormality is identified. Electronically signed by: Ravi Santo M.D. 12/27/2024 12:07 PM
[2024-12-27] MEDS: LABETALOL HCL IV 5 MG/ML 20ML IV STA ×2 (13:24→15:13)
[2024-12-27] MEDS: FAMOTIDINE 20MG IV PUSH 20 MG/5 ML SYR IV SCH (19:40)
[2024-12-27] MEDS: ONDANSETRON INJ 2 MG/ML 2 ML VIAL IV PRN (19:40)
[2024-12-27] MEDS ORDERED: MoRPHine SULFATE 2 MG/ML CARP IV PRN (19:48)
[2024-12-27] MEDS: MoRPHine SULFATE 2 MG/ML CARP IV PRN (19:53)
--- NOTE | 2024-12-27 23:06 | Hospitalist Progress Note ---
Date of Service December 27, 2024 Assessment & Plan (1) Abdominal pain: Plan: acute chest pain and abdominal pain in a 79 yo female with no significant past medical history. Doubt ACS, troponin only mildly elevated. Ruled out P/E and dissection with CTA of chest and abd/pevis. WBC now downtrending. No recent use of NSAIDs Concern for Gastroenteritis vs peptic ulcer disease. will place on pantoprazole sucralfate. Consulted gastro, EGD to be completed tomorrow Hypertensive Urgency Patient with elevated BP SBP above 250, Patient not tolerating oral meds, Ordered IV labetalol. Ordered Lisinopril. will monitor. Patient required multiple visits. Admission and Anticipated Discharge Date Admission Date: December 26, 2024 Subjective Patient report scontinuing to have nausea and vomiting with abd. pain and chest pain. Physical Exam Constitutional: WD/WN, vitals as above Eyes: PERRL, conjunctivae normal, anicteric sclerae ENMT: external ear and nose normal, oropharynx normal Neck: trachea midline, no thyromegaly Respiratory: normal respiratory effort, lungs clear to auscultation Cardiovascular: RRR, no murmur, no edema Gastrointestinal (Abdomen): Inspection/Auscultation: abdomen normal to inspection and normal bowel sounds Percussion/Palpation: abdomen soft; abdomen nontender Musculoskeletal: no cyanosis or clubbing, extremities motor strength 5/5 Skin: no rashes, warm and dry Neurologic: PERRL, EOMI, accommodation nl, no face palsy, no dysarthria Psychiatric: A+Ox3, euthymic affect Lymphatic: no cervical or axillary lymphadenopathy Results & Data Results & Data Vital Signs (Past 12 Hours) Vital Signs Temp Pulse Pulse Resp BP BP BP 12/27/24 23:03 36.6 C 63 16 100/55 L 12/27/24 20:15 36.5 C 62 17 220/93 H 12/27/24 15:41 225/113 H 12/27/24 15:40 224/113 H 12/27/24 15:25 36.6 C 60 20 238/97 H 12/27/24 15:21 67 12/27/24 15:14 12/27/24 15:03 238/97 H 12/27/24 11:39 36.3 C L 68 18 257/109 H Pulse Ox Pulse Ox O2 Del Method O2 Del Method 12/27/24 23:03 95 Room Air 12/27/24 20:15 95 Room Air 12/27/24 15:41 12/27/24 15:40 12/27/24 15:25 97 Room Air 12/27/24 15:21 12/27/24 15:14 96 Room Air 12/27/24 15:03 12/27/24 11:39 96 Room Air PG Care Time/CCT Total # of Minutes Spent Total Time Spent with Patient: Total time spent is greater than 50% in coordination of care (as documented) at patient's floor/unit and/or counseling patient: Coding Level of Care Code 60644 SUB INP/OBS CARE 3/50MIN Diagnoses Abdominal pain R10.9 Abdominal location: unspecified location (1) Abdominal pain Abdominal location: unspecified location Qualified Code(s): R10.9 - Unspecified abdominal pain
[2024-12-28] MEDS: LIDOCAINE VISCOUS 2% 15 ML UDC MT ONE (05:28)
--- NOTE | 2024-12-28 09:44 | History & Physical Bridge Note ---
Date of Service December 28, 2024 History & Physical Bridge Note I have examined the patient, reviewed the History & Physical and in the interval since the performance of the History & Physical I have noted the following changes of clinical significance: no changes noted Patient has been NPO since midnight. She had no acute events overnight. She notes her chest pain is significantly improved. She was able to rest last night after receiving narcotic pain medication per her reports. Keep NPO & proceed with EGD today to assess for any underlying upper GI causes of her substernal chest pain. Supervising Physician Co-Signing Physician Notes I saw and examined this patient with our nurse practitioner and agree with her assessment and plan.
--- NOTE | 2024-12-28 13:38 | Anesthesiology Consultation ---
Date of Service December 28, 2024 Assessment & Plan Chart Review Chart Review: Acceptable Risk for Surgery and Patient NOT seen in Pre Admission Testing Consults Requested none History Surgery Operation Date: 12/28/24 16:55 Proposed Procedures p Esophagogastroduodenoscopy Dr. Jonas Mcdaniel MD Height/Weight Height: 5 ft 5.5 in Weight: 62.9 kg Allergies Allergy/AdvReac Type Severity Reaction Status Date / Time No Known Allergies Allergy Unverified 12/26/24 15:01 Medications Home Medications Medication Instructions Recorded Confirmed Last Taken calcium carbonate 500 mg PO DAILY 12/26/24 12/26/24 12/25/24 cholecalciferol (vitamin D3) 25 25 mcg PO DAILY 12/26/24 12/26/24 12/25/24 mcg (1,000 unit) tablet (Vitamin D3) Active Medications Generic Name Dose Route Start Last Admin Trade Name Freq PRN Reason Stop Dose Admin Aspirin 81 mg 12/27/24 09:00 12/28/24 12:24 Aspirin 81 Mg Ectab PO 01/26/25 08:59 81 mg QAM MEGHAN Administration Enoxaparin Sodium 40 mg 12/27/24 09:15 12/28/24 10:23 Enoxaparin Inj 40 Mg/0.4 Ml Syr SQ 01/26/25 09:14 40 mg QAM MEGHAN Administration Pantoprazole Sodium 40 mg in 10 mls @ 5 mls/min 12/27/24 09:00 12/28/24 10:24 Protonix IV 01/26/25 08:59 5 mls/min BID MEGHAN Administration Famotidine 20 mg in 5 mls @ 2.5 mls/min 12/27/24 21:00 12/28/24 12:24 Pepcid 20mg Iv Push IV 01/26/25 20:59 2.5 mls/min Q12H MEGHAN Administration Prochlorperazine 5 mg/ Syringe 5 mls @ 5 mls/min 12/27/24 10:40 12/27/24 11:39 IV 01/26/25 10:39 5 mls/min Q6H PRN Administration Nausea And Vomiting Morphine Sulfate 2 mg 12/27/24 19:40 12/27/24 19:53 Morphine Sulfate 2 Mg/Ml Carp IV 01/10/25 19:39 2 mg Q3H PRN Administration Pain Ondansetron HCl 4 mg 12/27/24 08:41 12/27/24 19:40 Ondansetron Inj 2 Mg/Ml 2 Ml Vial IV 01/26/25 08:40 4 mg Q6H PRN Administration Nausea And Vomiting Sucralfate 1 gm 12/26/24 17:00 12/28/24 12:25 Sucralfate 1 Gm/10 Ml Udc PO 01/25/25 16:59 1 gm QID MEGHAN Administration NPO Date Last Intake of Fluids: 12/27/24 Time Last Intake of Fluids: 23:59 Date Last Intake of Solids: 12/25/24 Time Last Intake of Solids: 20:00 Last Intake of Solids Comment: patient states tuesday evening was her last meal. Social History Smoking Status: Never smoker Do You Dip or Chew Tobacco: No Hx Alcohol Use: No Hx Substance Use: No Physical Exam Vital Signs Last Vital Signs Temp 37.1 C 12/28/24 13:08 Pulse 67 12/28/24 13:08 Resp 16 12/28/24 13:08 BP 145/71 H 12/28/24 13:08 Pulse Ox 94 12/28/24 13:08 O2 Del Method Room Air 12/28/24 13:08 O2 Flow Rate 2 12/26/24 15:30 Testing Laboratory Results 12/27/24 05:34 12/27/24 05:34 PT 10.4 Seconds (9.0-12.0) 12/26/24 11:13 INR 1.0 (0.9-1.1) 12/26/24 11:13 APTT 27 Seconds (21-31) 12/26/24 11:13 Urine Color Yellow 12/26/24 13:55 Urine Appearance Clear (Clear) 12/26/24 13:55 Urine pH 8.5 (4.5-7.5) H 12/26/24 13:55 Ur Specific [place] > 1.045 (1.000-1.030) H 12/26/24 13:55 Urine Protein 1+ (Negative) H 12/26/24 13:55 Urine Glucose (UA) Negative (Negative) 12/26/24 13:55 Urine Ketones Trace (Negative) H 12/26/24 13:55 Urine Nitrite Negative (Negative) 12/26/24 13:55 Ur Leukocyte Esterase 1+ (Negative) H 12/26/24 13:55 Urine WBC (Auto) 0-5 /hpf (0-5) 12/26/24 13:55 Urine RBC (Auto) 11-20 /hpf (0-2) H 12/26/24 13:55 U Hyaline Cast (Auto) 0-2 /lpf (0-2) 12/26/24 13:55 U Epithel Cells (Auto) 6-10 /hpf (0-2) H 12/26/24 13:55 Urine Bacteria (Auto) 2+ (None Seen) H 12/26/24 13:55
--- NOTE | 2024-12-28 14:04 | GI REPORT ---
[facility] Patient: OBI JOHNS : 1945 Sex at : Female Age: 79 Years Procedure: Upper GI endoscopy Date: 12/28/2024 Attending Physician: Edgar Mcdaniel MD Referring MD: Referred Self Indications: - Epigastric abdominal pain - Chest pain Medications: - Monitored Anesthesia Care Complications: - No immediate complications. Procedure: - Prior to the procedure, a History and Physical was performed, and patient medications and allergies were reviewed. The patient's tolerance of previous anesthesia was also reviewed. The risks and benefits of the procedure and the sedation options and risks were discussed with the patient. All questions were answered, and informed consent was obtained. [Anticoagulant Agents] [Days Prior to Procedure]. [ASA Grade]. After reviewing the risks and benefits, the patient was deemed in satisfactory condition to undergo the procedure. - The egd scope was introduced through the mouth and advanced to the second part of the duodenum. - The upper GI endoscopy was accomplished without difficulty. - The patient tolerated the procedure well. Findings: - The examined esophagus was normal. - The entire examined stomach was normal. - Patchy mildly erythematous mucosa was found in the duodenal bulb. Impression: - Normal esophagus. - Normal stomach. - Erythematous duodenopathy. - No specimens collected. Recommendation: - Resume previous diet. - Patient has a contact number available for emergencies. The signs and symptoms of potential delayed complications were discussed with the patient. Return to normal activities tomorrow. Written discharge instructions were provided to the patient. Procedure Code(s): - 36446, Esophagogastroduodenoscopy, flexible, transoral; diagnostic, including collection of specimen(s) by brushing or washing, when performed (separate procedure) Diagnosis Code(s): - R10.13, Epigastric pain - K31.89, Other diseases of stomach and duodenum CPT(R) - 2023 copyright [employer]. All Rights Reserved. The CPT codes, CCI edits and ICD codes generated are intended as suggestions and were generated based on input data. These codes are preliminary and upon supervisor rubber covering review may be revised to meet current compliance and payer requirements. The provider is responsible for the final determination of appropriate codes, and modifiers. Edgar Mcdaniel MD This document has been electronically signed. Note Initiated:12/28/2024 Note Completed:12/28/2024 2:03 PM [id number]
--- NOTE | 2024-12-28 14:09 | Anesthesiology Progress Note ---
Date of Service December 28, 2024 Anesthesia Post Procedure Vital Signs Vital Signs: Temp Pulse Pulse Resp BP BP BP 12/28/24 14:03 60 16 156/79 H 12/28/24 13:08 37.1 C 67 16 145/71 H 12/28/24 12:47 59 L 12/28/24 10:58 36.6 C 52 L 21 168/84 H 12/28/24 07:40 36.9 C 63 20 147/72 H 12/27/24 23:37 62 12/27/24 23:03 36.6 C 63 16 100/55 L 12/27/24 20:15 36.5 C 62 17 220/93 H 12/27/24 15:41 225/113 H 12/27/24 15:40 224/113 H 12/27/24 15:25 36.6 C 60 20 238/97 H 12/27/24 15:21 67 12/27/24 15:14 12/27/24 15:03 238/97 H Pulse Ox Pulse Ox O2 Del Method O2 Del Method 12/28/24 14:03 97 Room Air 12/28/24 13:08 94 Room Air 12/28/24 12:47 12/28/24 10:58 95 Room Air 12/28/24 07:40 91 Room Air 12/27/24 23:37 12/27/24 23:03 95 Room Air 12/27/24 20:15 95 Room Air 12/27/24 15:41 12/27/24 15:40 12/27/24 15:25 97 Room Air 12/27/24 15:21 12/27/24 15:14 96 Room Air 12/27/24 15:03 Pain Intensity Chest: Pain Intensity: 5 Transfer of Care Handoff Completed per policy Notes Mental Status: alert / awake / arousable Patient Amnestic to Procedure: Yes Nausea / Vomiting: adequately controlled Pain: adequately controlled Airway Patency, RR, SpO2: stable & adequate BP & HR: stable & adequate Hydration State: stable & adequate Anesthetic Complications: no major complications apparent and Pt Satisfied with anesthetic care
[2024-12-28 16:05] LABS: Hematocrit (blood only) 51.6 % (37.0-47.0); Hemoglobin 17.3 g/dl (12.0-16.0); Mean Corpuscular Hemoglobin 28.6 pg (25.0-34.0); Mean Corpuscular Volume 85.4 fL (80.0-100.0); Platelet Count 276 K/uL (130-400); RDW Standard Deviation 46.4 fL (36.4-46.3); Red Blood Count 6.04 M/uL (4.20-5.40); White Blood Count 13.13 K/ul (4.8-10.8)
[2024-12-28 16:18] LABS: Anion Gap 10.0 (3-11); Blood Urea Nitrogen 30.0 mg/dl (6-23); Calcium 10.0 mg/dl (8.6-10.3); Carbon Dioxide 28.0 mmol/L (21-32); Chloride 100.0 mmol/L (98-107); Creatinine Clr Calc Pharmacy 21.3 ml/min; Glucose 100.0 mg/dl (70-99(Fasting)); Potassium 3.1 mmol/L (3.5-5.1); Sodium 138.0 mmol/L (136-145)
[2024-12-28] MEDS: POTASSIUM CHLORIDE CRTAB 20 MEQ TABCR PO STA (17:30)
[2024-12-28] MEDS: POLYETHYLENE (MIRALAX) 17 GM PACK PO PRN (17:34)
[2024-12-28] MEDS: SODIUM CHLORIDE 0.9% 1,000 ML IV SCH (18:07)
[2024-12-28] MEDS: PROPOFOL IV EMULSION 10 MG/ML 20 ML VIAL IV ONE (19:17)
[2024-12-28] MEDS: LIDOCAINE 2% 2 ML VIAL/AMP(20MG/ML) INFIL ONE (19:17)
--- NOTE | 2024-12-28 22:25 | Hospitalist Progress Note ---
Date of Service December 28, 2024 Assessment & Plan (1) Abdominal pain: Plan: acute chest pain and abdominal pain in a 79 yo female with no significant past medical history. Doubt ACS, troponin only mildly elevated. Ruled out P/E and dissection with CTA of chest and abd/pevis. WBC now downtrending. No recent use of NSAIDs Concern for Gastroenteritis vs peptic ulcer disease. will place on pantoprazole sucralfate. Consulted gastro, EGD completed; no signs of PUD Hypertensive Urgency Possible HYpertensive emergency Given that patient now has acute kidney injury with a creatinine of 2. However this could be due to poor oral intake. Will aggressively give IVF and monitor. Will delay discharge for another day. Patient with elevated BP SBP above 250, Patient not tolerating oral meds, Patient required IV labetalol yesterday but her vitals are better controlled t noah. Admission and Anticipated Discharge Date Admission Date: December 26, 2024 Subjective 79 yo female reports no new symptoms. Patient states she is feeling much better. Physical Exam Constitutional: WD/WN, vitals as above Eyes: PERRL, conjunctivae normal, anicteric sclerae ENMT: external ear and nose normal, oropharynx normal Neck: trachea midline, no thyromegaly Respiratory: normal respiratory effort, lungs clear to auscultation Cardiovascular: RRR, no murmur, no edema Gastrointestinal (Abdomen): Inspection/Auscultation: abdomen normal to inspection and normal bowel sounds Percussion/Palpation: abdomen soft; abdomen nontender Musculoskeletal: no cyanosis or clubbing, extremities motor strength 5/5 Skin: no rashes, warm and dry Neurologic: PERRL, EOMI, accommodation nl, no face palsy, no dysarthria Psychiatric: A+Ox3, euthymic affect Lymphatic: no cervical or axillary lymphadenopathy Results & Data Results & Data Vital Signs (Past 12 Hours) Vital Signs Temp Pulse Pulse Resp BP BP Pulse Ox 12/28/24 19:12 36.8 C 77 20 146/81 H 92 12/28/24 18:18 36.7 C 81 20 137/80 93 12/28/24 14:53 55 L 16 165/68 H 95 12/28/24 14:33 51 L 16 192/96 H 94 12/28/24 14:18 55 L 16 182/88 H 95 12/28/24 14:03 60 16 156/79 H 97 12/28/24 13:08 37.1 C 67 16 145/71 H 94 12/28/24 12:47 59 L 12/28/24 10:58 36.6 C 52 L 21 168/84 H 95 O2 Del Method 12/28/24 19:12 Room Air 12/28/24 18:18 Room Air 12/28/24 14:53 Room Air 12/28/24 14:33 Room Air 12/28/24 14:18 Room Air 12/28/24 14:03 Room Air 12/28/24 13:08 Room Air 12/28/24 12:47 12/28/24 10:58 Room Air PG Care Time/CCT Total # of Minutes Spent Total Time Spent with Patient: Total time spent is greater than 50% in coordination of care (as documented) at patient's floor/unit and/or counseling patient: Coding Level of Care Code 75554 SUB INP/OBS CARE 3/50MIN Diagnoses Abdominal pain R10.9 Abdominal location: unspecified location (1) Abdominal pain Abdominal location: unspecified location Qualified Code(s): R10.9 - Unspecified abdominal pain
[2024-12-29 06:36] LABS: Hematocrit (blood only) 41.5 % (37.0-47.0); Hemoglobin 13.5 g/dl (12.0-16.0); Mean Corpuscular Hemoglobin 28.0 pg (25.0-34.0); Mean Corpuscular Volume 85.9 fL (80.0-100.0); Platelet Count 204 K/uL (130-400); RDW Standard Deviation 47.0 fL (36.4-46.3); Red Blood Count 4.83 M/uL (4.20-5.40); White Blood Count 8.62 K/ul (4.8-10.8)
[2024-12-29 07:09] LABS: Anion Gap 6.0 (3-11); Blood Urea Nitrogen 33.0 mg/dl (6-23); Calcium 8.7 mg/dl (8.6-10.3); Carbon Dioxide 27.0 mmol/L (21-32); Chloride 108.0 mmol/L (98-107); Creatinine Clr Calc Pharmacy 27.8 ml/min; Glucose 91.0 mg/dl (70-99(Fasting)); Potassium 3.7 mmol/L (3.5-5.1); Sodium 141.0 mmol/L (136-145)
[2024-12-29 10:52] VITALS: PULSE 54; RESP 18; TEMP 97.7; O2SAT 95
[2024-12-29 11:10] VITALS: BP 129/65
--- NOTE | 2024-12-29 12:15 | Discharge Summary ---
Discharge Summary Date of Service December 29, 2024 Principal Dx & Hospital Course #1 = Principal Diagnosis (1) Abdominal pain: acute chest pain and abdominal pain in a 79 yo female with no significant past medical history. Doubt ACS, troponin only mildly elevated. Ruled out P/E and dissection with CTA of chest and abd/pevis. WBC now downtrending. No recent use of NSAIDs Concern for Gastroenteritis vs peptic ulcer disease. will place on pantoprazole sucralfate. Consulted gastro, EGD completed; no signs of PUD Hypertensive Urgency Possible HYpertensive emergency Given that patient now has acute kidney injury with a creatinine of 2. However this could be due to poor oral intake. Will aggressively give IVF and monitor. Will delay discharge for another day. Patient with elevated BP SBP above 250, Patient not tolerating oral meds, Patient required IV labetalol yesterday but her vitals are better controlled today. Admission HPI Per Admitting Provider 79 yo female woke up at 4 am with need to defecate. She went to the bathroom and had a liquid BM, which is not her norm. She noted there was no blood. Patient went back to bed but was unable to fall back to sleep. She stated that her pain returned and radiated to her back. She reports the raidation begins in her mid lumbar spine but then goes up to her chest and mid thoracic spine. = This was accompanied by need to go to defecate, however she only passed gas. She then had chills, followed by nausea and miultiple episodes of vomiting. No recent use of NSAIDs. Patient has not followed with a PCP in past 2 years. Discharge Exam Constitutional WD/WN, vitals as above Eyes PERRL, conjunctivae normal, anicteric sclerae ENMT external ear and nose normal, oropharynx normal Neck trachea midline, no thyromegaly Respiratory normal respiratory effort, lungs clear to auscultation Cardiovascular RRR, no murmur, no edema Gastrointestinal (Abdomen) Inspection/Auscultation: abdomen normal to inspection and normal bowel sounds Percussion/Palpation: abdomen soft; abdomen nontender Musculoskeletal no cyanosis or clubbing, extremities motor strength 5/5 Skin no rashes, warm and dry Neurologic PERRL, EOMI, accommodation nl, no face palsy, no dysarthria Psychiatric A+Ox3, euthymic affect Lymphatic no cervical or axillary lymphadenopathy Discharge Plan Discharge Items Patient Disposition: Home - Self-Care Reason For Visit: CHEST PAIN Discharge Diagnosis: chest pain Condition on Discharge: Fair Activity: Resume your previous activity Non-emergency contact: Primary Care Provider Call non-emergency contact if: you have any medication questions Follow-up/Referrals: PCP,NO [Primary Care Provider] - Diet: Regular Addtl Attending Provider Instructions: Recommend followup with PCP in 1-2 weeks. Recommend to continue famotidine and sucralfate for 4 weeks. Recommend starting amlodipine 2.5 mg PO HS Pending Studies at Discharge: No Stand-Alone Forms: My [facility] GAMINSIDE, Smoking Cessation Medications and DC Order Prescriptions: New amlodipine 2.5 mg tablet 2.5 mg PO PM Qty: 30 0RF sucralfate 1 gram tablet 1 g PO ACHS 28 Days Qty: 100 0RF famotidine 20 mg tablet 20 mg PO HS Qty: 30 0RF Continued calcium carbonate 500 mg calcium (1,250 mg) Tablet 500 mg PO DAILY cholecalciferol (vitamin D3) [Vitamin D3] 25 mcg (1,000 unit) Tablet 25 mcg PO DAILY Discharge Orders: Discharge Order (Routine); Ordered 12/29/24 Ordered By: Arash Brandon Admission Data Admit Date/Time: 12/26/24 15:14 Attending Provider: Arash Brandon Admit Provider: Arash Brandon Primary Care Provider: PCP,NO Other Providers: Arash Brandon; Noah Duval; Andi Madison; Natalie Epperson; Radha Cornell; Roya Avila; Carolyn Mazariegos; Jose Alfredo Payan; Juan Zaidi; Obdulia Mckeon; Amanda Woody S; Rena Winter; Meseret Austin; Elin Tran; Jennie Anaya; Kieran Galdamez; Hardy Pace; Yonas Ocampo; Marjorie Cook; Olga Mcdonald Jr; Eliud Escalona; Floyd Vasquez; Jorje Fajardo; Nazario Powell; Melanie Moyer; Edgar Mcdaniel I; Louise Wood; Rolan Viera; Rajendra Ragsdale; Fran Cook; Zachary Nolan Other Interventions: Discharge Summary Assessment (RN) Last Done: 12/29/24 11:00 Hospital Stay Data Consultations 12/26/24 15:06 ED Decision to Admit Stat 12/27/24 08:59 Consult Gastroenterology Routine Procedures Performed Operation Date: 12/28/24 16:55 Actual Procedures p Esophagogastroduodenoscopy - Edgar Mcdaniel MD Diagnostic Imagining Performed 12/26/24 11:48 CT abd pelvis IV con only Stat 12/26/24 12:41 CT angio chest PE protocol Stat Pending Results Patient Have Any Pending Studies at Discharge: No Discharge Instructions Given to Patient (Per Discharging Provider) Recommend followup with PCP in 1-2 weeks. Recommend to continue famotidine and sucralfate for 4 weeks. Recommend starting amlodipine 2.5 mg PO HS Coding Diagnoses Abdominal pain R10.9 Abdominal location: unspecified location
[2024-12-30] MEDS ORDERED: ENOXAPARIN INJ 30 MG/0.3 ML SYR SQ SCH (09:00)
== END 2024-12-29 15:03 | disposition home or self-care (01) | DRG 392 ==
LOC: ED 11:33 → 2E 15:14 → INTOOBSV 15:14 → 2E 18:07